=== PATIENT | female | born 1975 | race Hispanic/Latino ===

== ENCOUNTER 2018-01-16 21:02 | Emergency (ER) | payer MEDICAID ==
[~2018-01-16 21:02] MED LIST: QUET50TA PO
[2018-01-16 23:01] LABS: BASOPHILS % (AUTO) 0.6 % (0.0-5.0); EOSINOPHILS % (AUTO) 0.4 % (0.0-8.0); HEMATOCRIT 40.9 % (36-48); MEAN CORPUSCULAR HEMOGLOBIN 29.9 pg (27.0-33.0); MEAN CORPUSCULAR HGB CONC 34.2 g/dL (32.0-36.0); MEAN CORPUSCULAR VOLUME 87.2 fL (79-99); MONOCYTES % (AUTO) 4.5 % (3.0-13.0); NEUTROPHILS % (AUTO) 74.5 % (40.0-77.0); PLATELET COUNT (AUTO) 270 K/uL (130-400); RED BLOOD CELL COUNT(AUTO) 4.69 MIL/uL (4.00-5.50); RED CELL DISTRIBUTION WIDTH 13.3 % (11.0-15.5); WHITE BLOOD COUNT (AUTO) 9.9 K/uL (4.8-10.8)
[2018-01-16 23:10] LABS: POTASSIUM 3.9 mmol/L (3.5-5.1)
[2018-01-16] MEDS ORDERED: SODIUM CHLORIDE 0.9% 1000ML 1,000 ML IV ONE (23:17)
[2018-01-16] MEDS ORDERED: ONDANSETRON HCL MDV 20ML 2 MG/ML VIAL ONE (23:17)
[2018-01-16 23:18] LABS: ALBUMIN 3.9 g/dL (3.5-5.0); BILIRUBIN,TOTAL 0.3 mg/dL (0.2-1.0); TOTAL PROTEIN, SERUM 8.8 g/dL (6.0-8.3)
== END 2018-01-17 02:46 | disposition home or self-care (01) ==
LOC: EDH 21:02
DX: K52.9 Noninfective gastroenteritis and colitis, unspecified (principal); E11.9 Type 2 diabetes mellitus without complications; I10 Essential (primary) hypertension; Z88.0 Allergy status to penicillin; Z88.1 Allergy status to other antibiotic agents; Z90.710 Acquired absence of both cervix and uterus
CPT/HCPCS: 36415; 80053; 83690; 84703; 85025; 96361; 96374; 99285; J7030

== ENCOUNTER → 2018-07-27 | Outpatient (CLI) | payer MEDICAID | END | disposition home or self-care (01) | LOC: RAH 07:54 | PROVIDERS: ATTEND Family Medicine | DX: K76.0 Fatty (change of) liver, not elsewhere classified (principal); R16.0 Hepatomegaly, not elsewhere classified | CPT/HCPCS: 76700 ==

== ENCOUNTER → 2019-08-23 | Outpatient (CLI) | payer MEDICAID | END | disposition home or self-care (01) | LOC: RAH 08-16 08:21 | PROVIDERS: ATTEND Family Medicine | DX: Z12.31 Encounter for screening mammogram for malignant neoplasm of breast (principal); I25.10 Atherosclerotic heart disease of native coronary artery without angina pectoris; A41.9 Sepsis, unspecified organism; E66.9 Obesity, unspecified; A49.8 Other bacterial infections of unspecified site; Z95.1 Presence of aortocoronary bypass graft | CPT/HCPCS: 77066 ==

== ENCOUNTER 2022-08-09 01:11 | Emergency (ER) | payer MEDICAID ==
[~2022-08-09] VITALS: Ht 157.5 cm; Wt 99.3 kg
[2022-08-09 01:30] LABS: APPEARANCE,URINE CLOUDY (CLEAR); BILIRUBIN,URINE NEGATIVE (NEGATIVE); COLOR,URINE YELLOW (YELLOW); GLUCOSE, URINE (UA) NEGATIVE (NEGATIVE); KETONES,URINE NEGATIVE (NEGATIVE); LEUKOCYTE ESTERASE ,URINE 500 Leu/uL (NEGATIVE); NITRATE,URINE NEGATIVE (NEGATIVE); PH,URINE 5.5 (5.0-8.0); PROTEIN,URINE 50 mg/dL (NEGATIVE); UROBILINOGEN,URINE 0.2 mg/dL (0.2-1.0)
[2022-08-09 01:33] LABS: BACTERIA,URINE FEW /HPF (None Seen); MUCUS,URINE RARE LPF (None Seen); SQUAMOUS EPITHELIAL CELL,UR MANY /HPF (0-2); WBC,URINE 51-100 /HPF (0-1)
[2022-08-09] MEDS ORDERED: CEFTRIAXONE 1G VIAL ONE (01:48)
[2022-08-09] MEDS ORDERED: 0.9%NACL 1000ML 1,000 ML IV ONE (02:00)
[2022-08-09] MEDS ORDERED: KETOROLAC 30MG VIAL (30MG/ML) IVP ONE (02:00)
[2022-08-09] MEDS ORDERED: CEFTRIAXONE 1G VIAL IVP ONE (02:00)
[2022-08-09 02:32] LABS: BASOPHILS % (AUTO) 0.5 % (0.0-5.0); EOSINOPHILS % (AUTO) 1.7 % (0.0-8.0); HEMATOCRIT 39.3 % (36-48); LYMPHOCYTES % (AUTO) 37.4 % (21.0-51.0); MEAN CORPUSCULAR HGB CONC 34.4 g/dL (32.0-36.0); MEAN CORPUSCULAR VOLUME 84.5 fL (79-99); NEUTROPHILS % (AUTO) 52.8 % (40.0-77.0); PLATELET COUNT (AUTO) 180 K/uL (130-400); RED BLOOD CELL COUNT(AUTO) 4.65 MIL/uL (4.00-5.50); RED CELL DISTRIBUTION WIDTH 13.2 % (11.0-15.5)
[2022-08-09 02:46] LABS: INR 0.98 (0.85-1.15); PROTHROMBIN TIME 10.7 SEC (9.6-11.6)
[2022-08-09 02:47] LABS: PARTIAL THROMBOPLASTIN TIME 21.3 SEC (26.3-35.5)
[2022-08-09 02:48] LABS: CREATININE 0.9 mg/dL (0.5-1.5); POTASSIUM 4.3 mmol/L (3.5-5.1)
[2022-08-09 02:51] LABS: ALBUMIN 3.6 g/dL (3.5-5.0); TOTAL PROTEIN, SERUM 8.2 g/dL (6.0-8.3)
[2022-08-09] MEDS ORDERED: 0.9%NACL 1000ML 1,000 ML IV SCH (03:00)
[2022-08-09] MEDS ORDERED: CEFU500T67 PO (03:05)
[2022-08-09] MEDS ORDERED: IBUP-1493 PO (03:05)
[2022-08-09 03:08] VITALS: BP 111/71
== END 2022-08-09 03:27 | disposition home or self-care (01) ==
LOC: EDH 01:11
DX: M54.9 Dorsalgia, unspecified (principal); N39.0 Urinary tract infection, site not specified; E11.9 Type 2 diabetes mellitus without complications; E78.00 Pure hypercholesterolemia, unspecified; I10 Essential (primary) hypertension; F31.9 Bipolar disorder, unspecified; Z90.710 Acquired absence of both cervix and uterus; Z88.0 Allergy status to penicillin; Z79.1 Long term (current) use of non-steroidal anti-inflammatories (NSAID); Z88.1 Allergy status to other antibiotic agents
CPT/HCPCS: 99284; 74176; 96374; 96361; 96375; 80053; 85025; 85610; 85730; 87088; 83605; 81001; 36415; J0696; J1885

== ENCOUNTER 2023-04-29 01:56 | Emergency (ER) | payer MEDICAID ==
[~2023-04-29] VITALS: Ht 157.5 cm; Wt 102.1 kg
[~2023-04-29 01:56] MED LIST changes: +CEFU500T67 PO; +IBUP-1493 PO
[2023-04-29 01:58] VITALS: BP 125/80; PULSE 87; RESP 20
== END 2023-04-29 02:45 | disposition left against medical advice (07) ==
LOC: EDH 01:56
DX: R51.9 Headache, unspecified (principal); Z53.21 Procedure and treatment not carried out due to patient leaving prior to being seen by health care provider
CPT/HCPCS: 99281

== ENCOUNTER 2024-09-06 12:05 | Emergency (ER) | payer MEDICAID ==
[~2024-09-06] VITALS: Ht 157.5 cm; Wt 104.3 kg
--- NOTE | 2024-09-06 13:15 | ERN ---
ED Note History of Present Illness Stated Complaint: SENT BY TO R/O CHOLECYSTITIS Chief Complaint: Abdominal Pain Time Seen by MD: 12:14 Dictation: Patient is a 49-year-old female with past medical history of hypercholesteremia, diabetes, mental illness came to the ED with a chief complaint of pain in the right upper quadrant since 2 weeks. Patient complains pain in the right upper quadrant started 2 weeks ago and is radiating to the back. Patient denies chest pain, trouble breathing, headaches. No nausea, vomitings. Allergies: Coded Allergies: Penicillins (Unverified Allergy, Unknown, 04/02/19) levofloxacin (Unverified Allergy, Unknown, 04/02/19) Home Meds Active Scripts Ibuprofen (Motrin/Advil) 800 Mg Tab, 800 MG PO TID, #30 TAB Prov:RADHA DEL ANGEL MD 08/09/22 Cefuroxime Axetil (Cefuroxime) 500 Mg Tablet, 500 MG PO BID, #20 TAB Prov:RADHA DEL ANGEL MD 08/09/22 Reported Medications Quetiapine Fumarate (Seroquel) 50 Mg Tablet, 50 MG PO PCDINNER, TAB 11/07/14 Past Medical History Past Medical History: Diabetes-Type II, High Cholesterol Surgical History: Other Surgical History Other: BLADDER SWING Family History: Negative Social History: Negative, Lives with family : 3 Para: 2 Aborts: 1 Review of System Dictation Constitutional-no chills, weight loss/gain, fever Eyes-no injury, pain, redness and discharge ENT-no injury, pain, swelling Cardiovascular no chest pain, palpitations, edema Respiratory no shortness of breath, cough, wheezing Abdomen/GI-no diarrhea, constipation, vomiting, nausea. Abdominal pain Back no injury and pain Genitourinary no injury, bleeding and discharge Musculoskeletal/extremities no injury, deformity Skin no rash, discoloration Neuro-no headache, weakness, numbness, tingling, seizures, tremors Psych-no suicidal ideation, homicidal ideation, hallucinations, depression, anxiety, memory loss Initial Vital Sign VS Vital Signs Date Time Temp Pulse Resp B/P (MAP) Pulse Ox O2 Delivery O2 Flow Rate FiO2 09/06/24 12:37 98.2 87 16 145/120 98 0 09/06/24 14:29 Room Air* 21 Physical Exam Dictation General-patient is awake alert and oriented Head/neck-normocephalic, atraumatic Eyes-PERRL, EOMI, vision at baseline Neck-trachea midline, supple, no nuchal rigidity Cardiovascular-RRR, normal S1/S2, no MRG is, no JVD Respiratory-no distress, wheezing, rales, rhonchi Abdomen-no guarding, soft, nondistended . Patient has tenderness over right upp er quadrant Skin warm, dry, normal turgor, no rash Musculoskeletal/extremities pulses equal, no cyanosis Neuro-COA X 4, GCS 15, strength 5/5, CN 2-12 intact Psych-normal behavior, mood and affect normal Results (Laboratory/Radiology) Laboratory/Radiology Laboratory Tests Test 09/06/24 13:55 09/06/24 14:25 White Blood Count 9.5 K/uL (4.8-10.8) Red Blood Count 4.79 MIL/uL (4.00-5.50) Hemoglobin 14.0 g/dL (12.0-16.0) Hematocrit 41.0 % (36-48) Mean Corpuscular Volume 85.6 fL (79-99) Mean Corpuscular Hemoglobin 29.2 pg (27.0-33.0) Mean Corpuscular Hemoglobin Concent 34.1 g/dL (32.0-36.0) Red Cell Distribution Width 12.6 % (11.0-15.5) Platelet Count 258 K/uL (130-400) Mean Platelet Volume 11.2 fL (7.5-10.5) H Immature Granulocyte % (Auto) 0.4 % (0-1) Neutrophils (%) (Auto) 52.8 % (40.0-77.0) Lymphocytes (%) (Auto) 36.5 % (21.0-51.0) Monocytes (%) (Auto) 6.9 % (3.0-13.0) Eosinophils (%) (Auto) 2.7 % (0.0-8.0) Basophils (%) (Auto) 0.7 % (0.0-5.0) Neutrophils # (Auto) 5.0 K/uL (1.8-7.7) Lymphocytes # (Auto) 3.5 K/uL (1.0-4.8) Monocytes # (Auto) 0.7 K/uL (0.1-1.0) Eosinophils # (Auto) 0.26 K/uL (0.00-0.70) Basophils # (Auto) 0.07 K/uL (0.00-0.20) Absolute Immature Granulocyte (auto 0.04 K/uL (0-1) Nucleated Red Blood Cells 0.0 % (0.0-0.19) Sodium Level 135 mmol/L (136-145) L Potassium Level 3.4 mmol/L (3.5-5.1) L Chloride Level 98 mmol/L (101-111) L Carbon Dioxide Level 25 mmol/L (21-32) Blood Urea Nitrogen 9 mg/dL (7-18) Creatinine 0.9 mg/dL (0.5-1.0) Glomerular Filtration Rate Calc 79 mL/min (>90) Random Glucose 201 mg/dL (70-105) H Total Calcium 8.8 mg/dL (8.5-10.1) Total Bilirubin 0.4 mg/dL (0.2-1.0) Direct Bilirubin 0.1 mg/dL (0.0-0.3) Aspartate Amino Transf (AST/SGOT) 25 U/L (10-37) Alanine Aminotransferase (ALT/SGPT) 40 U/L (12-78) Alkaline Phosphatase 74 U/L (50-136) Troponin I High Sensitivity 5 ng/L (4-50) Total Protein 8.7 g/dL (6.0-8.3) H Albumin 3.8 g/dL (3.5-5.0) Lipase 50 U/L (16-77) Serum Test, Qualitative NEGATIVE (NEGATIVE) Urine Color LIGHT-YELLOW (YELLOW) Urine Appearance CLEAR (CLEAR) Urine pH 6.0 (5.0-8.0) Urine Specific [place] 1.009 (1.001-1.031) Urine Protein NEGATIVE mg/dL (NEGATIVE) Urine Glucose (UA) NEGATIVE mg/dL (NEGATIVE) Urine Ketones NEGATIVE mg/dL (NEGATIVE) Urine Occult Blood NEGATIVE (NEGATIVE) Urine Nitrate NEGATIVE (NEGATIVE) Urine Bilirubin NEGATIVE mg/dL (NEGATIVE) Urine Urobilinogen 0.2 mg/dL (0.2-1.0) Urine Leukocyte Esterase NEGATIVE Candida/uL CT Scan Comment: PATIENT: JOHN WEAVER MR#: [id number] : 1975 SEX: F AGE: 49 LOCATION: [facility] ORDER [id number] STATUS: REG ER REPORT#: [id number] SERVICE 1308 REASON: RUQ pain , possible renal stones , possible cholecystitis ORDERING PHYSICIAN: KRISH CARLSON MD PROCEDURE: ABD PEL WO - CT ABDOMEN/PELVIS W/O CONTRAST CT ABDOMEN/PELVIS W/O CONTRAST REASON: RUQ pain , possible renal stones , possible cholecystitis COMPARISON: None. FINDINGS: Lung bases are clear. There are no focal liver lesions. There is a 3 mm nonobstructing stone in the lower pole calyx of the left kidney, there is a second 2 mm stone in a middle pole calyx. Kidneys are otherwise normal with no evidence of mass or hydronephrosis. There are no ureteral stones.. Spleen and pancreas appear unremarkable. The gallbladder appears normal as well. Bowel loops appear unremarkable. This includes normal appearance of the appendix There is no evidence of free fluid or intraperitoneal air. There are no focal fluid collections. Aorta and retroperitoneum appear normal as do pelvic soft tissue structures. The anterior abdominal wall is intact. Osseous structures appear unremarkable. IMPRESSION: 1. 2 very small nonobstructing left kidney stones. 2. Otherwise normal exam including normal appearance of the appendix and the gallbladder. CT was performed with one or more following dose reduction techniques: automated exposure control, adjustment of the mA and kv according to patient's size, or use of a iterative reconstruction technique. DICTATED BY: MARIELLE PERDOMO MD DATE: 09/06/24 161 ELECTRONICALLY SIGNED BY: MARIELLE PERDOMO MD DATE: 09/06/24 1617 ED Course ED Course Orders Procedure Category Date Status Time Cbc With Differential LAB 09/06/24 Complete 13:08 Basic Metabolic Panel LAB 09/06/24 Complete 13:08 Hepatic Function Panel LAB 09/06/24 Complete 13:08 Lipase LAB 09/06/24 Complete 13:08 Ct Abdomen/Pelvis W/O CT 09/06/24 Resulted Contrast 13:08 Urinalysis Profile LAB 09/06/24 Complete 13:08 Troponin I High LAB 09/06/24 Complete Sensitivity 13:21 12 Lead Ekg Tracing- EKG 09/06/24 Resulted Technical 13:21 Testing, LAB 09/06/24 Complete Serum Hcg 15:08 Vital Signs Date Time Temp Pulse Resp B/P (MAP) Pulse Ox O2 Delivery O2 Flow Rate FiO2 09/06/24 16:15 98.2 81 18 138/79 98 Room Air* 0 21 09/06/24 14:29 86 18 149/85 98 Room Air* 0 21 09/06/24 12:37 98.2 87 16 145/120 98 0 Medical Decision Making MDM INITIAL IMPRESSION Initial history and physical concerning for renal stones, acute cholecystitis, gallstones Contributing medical problems: Hypercholesterolemia I have reviewed the triage nursing notes and vital signs. Initial plan: Laboratory evaluation and CT scan DATA REVIEW I have reviewed additional NN, repeat VS, and monitoring where indicated. Heart rate, blood pressure, and O2 saturation are acceptable. ED COURSE Interventions: Reassessment: DISPOSITION Final diagnostic impression: I discussed my findings, clinical impression and treatment recommendations with the patient. I have reviewed the social factors contributing to the patient's presentation and disposition planning. My final plan for disposition was made based upon -mild risk of complications and potential morbidity of the patient's condition. -Discussion with the patient regarding management options. DX & DISP Disposition: Discharge Departure Impression: Primary Impression: Right upper quadrant abdominal pain of unknown etiology Condition: Stable Additional Instructions: Come Back to the ED if you have any acute or emergency symptoms Referrals: IKER DYER (PCP) Time of Disposition: 16:17 I have reviewed I have reviewed the case I have examined patient I performed a substantive portion of the visit. I have reviewed and personally made and approve the management plan that is documented in the notes by myself with MARJORIE/resident. I acknowledged full responsibility for the patient's management plan. KRISH CARLSON MD Sep 06, 2024 13:15 EMMA BELLO DO Sep 08, 2024 11:13
[2024-09-06 14:14] LABS: BASOPHILS # (AUTO) 0.07 K/uL (0.00-0.20); BASOPHILS % (AUTO) 0.7 % (0.0-5.0); EOSINOPHILS # (AUTO) 0.26 K/uL (0.00-0.70); EOSINOPHILS % (AUTO) 2.7 % (0.0-8.0); IMMATURE GRANULOCYTE ABSOLUTE 0.04 K/uL (0-1); LYMPHOCYTES # (AUTO) 3.5 K/uL (1.0-4.8); LYMPHOCYTES % (AUTO) 36.5 % (21.0-51.0); MEAN CORPUSCULAR HEMOGLOBIN 29.2 pg (27.0-33.0); MEAN CORPUSCULAR HGB CONC 34.1 g/dL (32.0-36.0); MEAN CORPUSCULAR VOLUME 85.6 fL (79-99); MONOCYTES # (AUTO) 0.7 K/uL (0.1-1.0); MONOCYTES % (AUTO) 6.9 % (3.0-13.0); NEUTROPHILS % (AUTO) 52.8 % (40.0-77.0); PLATELET COUNT (AUTO) 258 K/uL (130-400); RED BLOOD CELL COUNT(AUTO) 4.79 MIL/uL (4.00-5.50); RED CELL DISTRIBUTION WIDTH 12.6 % (11.0-15.5); WHITE BLOOD COUNT (AUTO) 9.5 K/uL (4.8-10.8)
[2024-09-06 14:49] LABS: APPEARANCE,URINE CLEAR (CLEAR); BILIRUBIN,URINE NEGATIVE (NEGATIVE); COLOR,URINE LIGHT-YELLOW (YELLOW); GLUCOSE, URINE (UA) NEGATIVE (NEGATIVE); KETONES,URINE NEGATIVE (NEGATIVE); LEUKOCYTE ESTERASE ,URINE NEGATIVE Leu/uL (NEGATIVE); NITRATE,URINE NEGATIVE (NEGATIVE); OCCULT BLOOD,URINE NEGATIVE (NEGATIVE); PROTEIN,URINE NEGATIVE (NEGATIVE); UROBILINOGEN,URINE 0.2 mg/dL (0.2-1.0)
[2024-09-06 14:51] LABS: ADD UA MICROSCOPIC NO
[2024-09-06 14:56] LABS: ALBUMIN 3.8 g/dL (3.5-5.0); BILIRUBIN,DIRECT 0.1 mg/dL (0.0-0.3); BILIRUBIN,TOTAL 0.4 mg/dL (0.2-1.0); CREATININE 0.9 mg/dL (0.5-1.0); POTASSIUM 3.4 mmol/L (3.5-5.1); TOTAL PROTEIN, SERUM 8.7 g/dL (6.0-8.3)
--- NOTE | 2024-09-06 15:18 | EKG ---
[facility] Test Date: 2024-09-06 Test Time: 14:59:52 Pat Name: JOHN WEAVER Department: ED Room: Gender: F Alarm Adjuster: [id number] : 1975 Requested By: KRISH CARLSON Order Number: [id number] Reading MD: Emmanuelle Amado Measurements Intervals [place] Rate: 78 P: 34 UT: 153 QRS: 3 QRSD: 90 T: 18 QT: 390 QTc: 444 Interpretive Statements Sinus rhythm Compared to ECG 10/04/2016 21:58:43 No significant changes Electronically Signed On 09-07-2024 17:24:25 CREATIVE GURU by Emmanuelle Amado Please click the below link to view image of tracing.
[2024-09-06 16:15] VITALS: BP 138/79; PULSE 81; RESP 18; TEMP 98.2; O2SAT 98
--- NOTE | 2024-09-06 16:17 | HMCIMG ---
CT ABDOMEN/PELVIS W/O CONTRAST REASON: RUQ pain , possible renal stones , possible cholecystitis COMPARISON: None. FINDINGS: Lung bases are clear. There are no focal liver lesions. There is a 3 mm nonobstructing stone in the lower pole calyx of the left kidney, there is a second 2 mm stone in a middle pole calyx. Kidneys are otherwise normal with no evidence of mass or hydronephrosis. There are no ureteral stones.. Spleen and pancreas appear unremarkable. The gallbladder appears normal as well. Bowel loops appear unremarkable. This includes normal appearance of the appendix There is no evidence of free fluid or intraperitoneal air. There are no focal fluid collections. Aorta and retroperitoneum appear normal as do pelvic soft tissue structures. The anterior abdominal wall is intact. Osseous structures appear unremarkable. IMPRESSION: 1. 2 very small nonobstructing left kidney stones. 2. Otherwise normal exam including normal appearance of the appendix and the gallbladder. CT was performed with one or more following dose reduction techniques: automated exposure control, adjustment of the mA and kv according to patient's size, or use of a iterative reconstruction technique.
== END 2024-09-06 16:46 | disposition home or self-care (01) ==
LOC: EDH 12:05
DX: N20.0 Calculus of kidney (principal); R10.11 Right upper quadrant pain; E11.9 Type 2 diabetes mellitus without complications; E78.00 Pure hypercholesterolemia, unspecified; Z79.1 Long term (current) use of non-steroidal anti-inflammatories (NSAID); Z88.0 Allergy status to penicillin; Z88.1 Allergy status to other antibiotic agents; Z98.890 Other specified postprocedural states
CPT/HCPCS: 36415; 74176; 80048; 80076; 81003; 83690; 84484; 84703; 85025; 93005; 99284